=== PATIENT | female | born 1970 | race Caucasian/White ===

== ENCOUNTER 2016-12-26 08:25 | Inpatient (IN) | payer SELFPAY ==
[~2016-12-26] VITALS: Ht 162.6 cm; Wt 52.6 kg
--- NOTE | ~2016-12-26 | PROC NOTE ---
[place], [place] PROCEDURE NOTE NAME: [id number] UNIT #: [id number] ROOM: 415 DOCTOR: VICTORM ANUEL LINCOLN MD BIRTHDATE: [birth year] DOS: 12/28/2016 The patient is a 46-year-old who has presented with chief complaint of epigastric distress, undergoing investigation. PROCEDURE: Today's procedure part of investigation is panendoscopy. PREMEDICATION: Versed and Diprivan. SCOPE: Olympus forward-viewing gastroscope Q10 video. REPORT: After putting the patient in the left lateral position and after application of lubricant to the scope, the scope was introduced thereafter under direct visualization, advanced through the length of esophagus without difficulty. Moderate size hiatal hernia noticed. Gastric pouch was entered. Gastritis was appreciated in the proximal stomach. Deep ulceration approximately 2 cm in diameter in antrum next to the pyloric ring was noticed. As I entered the duodenal bulb, there was a deep punctated ulceration about 2 cm in the duodenal bulb left lateral position, photographed. The patient extubated, tolerated procedure well. IMPRESSION: Antral ulcer, duodenal ulcers. PLAN AND DISCUSSION: Addition of Protonix 40 mg to Carafate 1 gram q.i.d., clinical reassessment. VICTOR MANUEL LINCOLN MD CM:PROCNOTE:PROCEDURE NOTE [id number] VICTOR MANUEL LINCOLN MD
--- NOTE | ~2016-12-26 | CON ---
[place], [place] REPORT OF CONSULTATION NAME: [facility]: [id number] UNIT #: [id number] ROOM: 415 DOCTOR: SALAZAR DESAIXAVIERANDREZ BIRTHDATE: [birth year] DOS: 12/28/2016 HISTORY OF PRESENT ILLNESS: The patient has presented with multiple medical problems, among which epigastric distress, abdominal pain, and borderline anemia. I have been asked for assessment of the patient. I am seeing the patient in this regard. Her lactic acid baseline was 1.2, GFR greater than 60, INR 1.1. CT scan of the abdomen, related to small bowel dilated loops, history of surgery and adhesions at the end of the loop. Her INR was normal. Her hemoglobin A1c was within normal. B12, folate was 1300 and 3.7, low folic acid and vitamin D. CBC dropped to 9.5 and 30 H and H. Urine culture, no growth. Urine was negative. Upper GI, unremarkable upper GI small bowel follow through was reported. PAST MEDICAL HISTORY: Associated COPD, hypertension, peptic ulcer disease, psoriasis. SOCIAL HISTORY: Associated with smoking. PAST SURGICAL HISTORY: Cholecystectomy, and endoscopies. FAMILY HISTORY: Noncontributory except diabetes and . ALLERGIES: SULFA. MEDICATIONS AT HOME: Carafate, lisinopril and gabapentin. REVIEW OF SYSTEMS: HEENT: Denies double vision, blurred vision. RESPIRATORY: Denies acute shortness of breath. CARDIOVASCULAR: Denies acute chest pain. DIGESTIVE SYSTEM: Nausea, epigastric distress, anemia, drop in H and H. PHYSICAL EXAMINATION: VITAL SIGNS: Stable. HEENT: Head normocephalic, nontraumatic. Mouth and buccal mucosa benign. NECK: Supple, no thyromegaly, no cervical lymphadenopathy. CHEST: Symmetric anatomy, equal expansion. No wheeze, no rhonchi. HEART: Normal sinus rhythm, no gallop, no murmur. ABDOMEN: Soft. No hepato-organomegaly. Bowel sounds present. No pulsatile mass. EXTREMITIES: No cyanosis, no pedal edema. NEUROLOGIC: Alert, oriented to time, place, person. IMPRESSION: Anemia, drop in hemoglobin and hematocrit, epigastric distress, ruling out peptic ulcer disease. PLAN AND DISCUSSION: We will organize EGD. OTHER ADJUNCTIVE DIAGNOSES: As outlined in past medical and surgical history. [place], [place] REPORT OF CONSULTATION NAME: BATOOL CIFUENTES V UNIT #: [id number] ROOM: 415 DOCTOR: SALAZAR DESAI,VICTOR MANUEL BIRTHDATE: [birth year] VICTOR MANUEL LINCOLN MD CM:CONSTR:REPORT OF CONSULTATION 1411 12/29/16 0105 interface
[~2016-12-26 08:25] MED LIST: ADVAIR 250/501 EA INH; CARAFATE1 G1 PO; IBUPROFEN600 MG PO; KEFLEX500 MG PO; LISINOPRIL20 MG PO; NEURONTIN600 MG PO; PREVACID SOLUTA30 MG PO; ULTRAM50 MG PO; VICODIN 5/500 505 MG PO
[2016-12-26] MEDS ORDERED: GABAPENTIN600 MG PO (08:30)
[2016-12-26 08:31] VITALS: BP 136/76
[2016-12-26] MEDS ORDERED: QBRELIS1 MG/1 ML PO (08:31)
[2016-12-26] MEDS ORDERED: CARAFATE1 G1 PO (08:31)
[2016-12-26 08:52] LABS: BASO % 0.4 % (0.0-1.0); EOS % 0.2 % (1.0-4.0); HEMATOCRIT 35.2 % (37.0-47.0); HEMOGLOBIN 11.6 g/dl (12.0-16.0); LYMPH # 1.6 10*3/uL (1.3-4.4); LYMPH % 32.1 % (27.0-41.0); MEAN CELL VOLUME 92.4 fl (81.0-99.0); MEAN CORPUSCULAR HGB 30.4 pg (27.0-31.0); MEAN PLATELET VOLUME 9.6 fl (9.6-12.3); MONO # 0.4 10*3/uL (0.1-1.0); MONO % 8.4 % (3.0-9.0); NEUT # 2.9 10*3/uL (2.3-7.9); NEUT % 58.7 % (47.0-73.0); PLATELET COUNT AUTOMATED 209 10*3/uL (130-400); RED BLOOD COUNT 3.81 10*6/uL (4.10-5.10); RED CELL DISTRI WIDTH 16.5 % (0-14.5); WHITE BLOOD COUNT 4.9 10*3/uL (4.8-10.8)
[2016-12-26 09:03] LABS: INTERNATIONAL NORM RATIO 1.1 (2.0-3.5)
[2016-12-26 09:08] LABS: ALBUMIN 3.4 gm/dl (3.1-4.5); ALKALINE PHOSPHATASE 180 U/L (45-117); BILIRUBIN, TOTAL 0.2 mg/dl (0.2-1.0); BUN 8 mg/dl (7-24); CARBON DIOXIDE 24 mmol/L (21-32); CHLORIDE 104 mmol/L (98-107); EST GLOM FILT AFRICAN AMERICAN > 60 ml/min; GLUCOSE 84 mg/dL (65-99); MAGNESIUM 1.9 mg/dL (1.5-2.1); POTASSIUM 2.7 mmol/L (3.5-5.1); SGOT/AST 19 IU/L (3-35); SGPT/ALT 43 U/L (12-78); SODIUM 144 mmol/L (136-145); TOTAL PROTEIN 6.9 gm/dL (6.4-8.2)
[2016-12-26 09:10] LABS: BILIRUBIN, DIRECT < 0.1 mg/dL (0.0-0.2)
[2016-12-26 12:20] VITALS: BP 124/73
[2016-12-26 13:00] VITALS: BP 134/68
[2016-12-26 16:00] VITALS: BP 113/73
[2016-12-26 20:00] VITALS: BP 142/76
[2016-12-27] VITALS: BP 118/71
[2016-12-27 05:43] LABS: HEMOGLOBIN A1c 5.1 % (4.8-5.6)
[2016-12-27 06:02] LABS: ALBUMIN 2.6 gm/dl (3.1-4.5); ALKALINE PHOSPHATASE 144 U/L (45-117); BILIRUBIN, TOTAL 0.2 mg/dl (0.2-1.0); BUN 6 mg/dl (7-24); CARBON DIOXIDE 26 mmol/L (21-32); CHLORIDE 110 mmol/L (98-107); CHOLESTEROL 141 mg/dL (<200); EST GLOM FILT AFRICAN AMERICAN > 60 ml/min; FREE T4 0.42 ng/dl (0.76-1.46); GLUCOSE 67 mg/dL (65-99); HDL CHOLESTEROL 37 mg/dl (40-60); INTERNATIONAL NORM RATIO 1.1 (2.0-3.5); LDL CHOLESTEROL 76 mg/dL (9-159); MAGNESIUM 1.9 mg/dL (1.5-2.1); PHOSPHOROUS 2.5 mg/dL (2.5-4.9); POTASSIUM 3.4 mmol/L (3.5-5.1); PROTHROMBIN TIME 12.2 SECONDS (9.0-12.4); SGOT/AST 17 IU/L (3-35); SGPT/ALT 34 U/L (12-78); SODIUM 144 mmol/L (136-145); TOTAL PROTEIN 5.5 gm/dL (6.4-8.2); TRIGLYCERIDES 138 mg/dl (<150); VLDL CHOLESTEROL 28 mg/dL (6-40)
[2016-12-27 06:24] LABS: VITAMIN D, 25-HYDROXY 7.6 ng/mL (30-100)
[2016-12-27 06:25] LABS: FOLIC ACID 3.37 ng/mL (>5.38)
[2016-12-27 07:12] LABS: BASO % 0.6 % (0.0-1.0); EOS % 0.9 % (1.0-4.0); HEMATOCRIT 30.6 % (37.0-47.0); LYMPH # 1.6 10*3/uL (1.3-4.4); LYMPH % 49.5 % (27.0-41.0); MEAN CORPUSCULAR HGB 30.3 pg (27.0-31.0); MEAN PLATELET VOLUME 9.7 fl (9.6-12.3); MONO # 0.3 10*3/uL (0.1-1.0); MONO % 7.7 % (3.0-9.0); NEUT # 1.3 10*3/uL (2.3-7.9); NEUT % 41.3 % (47.0-73.0); RED BLOOD COUNT 3.14 10*6/uL (4.10-5.10); RED CELL DISTRI WIDTH 16.6 % (0-14.5); WHITE BLOOD COUNT 3.2 10*3/uL (4.8-10.8)
[2016-12-27 07:15] LABS: HEMOGLOBIN 9.5 g/dl (12.0-16.0); MEAN CELL VOLUME 97.5 fl (81.0-99.0)
[2016-12-27 07:16] LABS: PLATELET COUNT AUTOMATED 136 10*3/uL (130-400)
[2016-12-27 08:00] VITALS: BP 138/86
[2016-12-27 12:00] VITALS: BP 130/72
[2016-12-27 13:36] LABS: BILIRUBIN NEGATIVE (NEGATIVE); BLOOD NEGATIVE (NEGATIVE); CLARITY CLOUDY (CLEAR); COLOR YELLOW (YELLOW); GLUCOSE NEGATIVE (NEGATIVE); KETONE NEGATIVE (NEGATIVE); LEUKO ESTERASE NEGATIVE (NEGATIVE); NITRITE NEGATIVE (NEGATIVE); PROTEIN 1+ (NEGATIVE); SPECIFIC GRAVITY 1.025 (1.005-1.030); UROBILINOGEN 0.2 E.U./dl (0.2-1.0)
[2016-12-27 13:50] LABS: BACTERIA TRACE; EPITHELIAL CELLS 16-20; MUCOUS 2+; RBC 0-2 rbc/hpf (0-2); URINE REFLEX COMMENT YES (NO)
[2016-12-27 15:08] LABS: H PYLORI IGG AB 162289 <0.9 U/mL (0.0-0.8)
[2016-12-27 16:00] VITALS: BP 159/80
[2016-12-27 17:06] LABS: H.PYLORI IGM <9.0 units (0.0-8.9); H.PYLORI IgA 163170 <9.0 units (0.0-8.9)
[2016-12-27 20:00] VITALS: BP 166/91
[2016-12-28] VITALS (9 sets, daily range): BP systolic 128–160; BP diastolic 65–90
[2016-12-28 06:06] LABS: BUN 6 mg/dl (7-24); CARBON DIOXIDE 27 mmol/L (21-32); CHLORIDE 108 mmol/L (98-107); EST GLOM FILT AFRICAN AMERICAN > 60 ml/min; GLUCOSE 73 mg/dL (65-99); POTASSIUM 3.6 mmol/L (3.5-5.1); SODIUM 143 mmol/L (136-145)
[2016-12-29] VITALS: BP 128/87
[2016-12-29 05:59] LABS: BASO % 0.5 % (0.0-1.0); EOS % 0.5 % (1.0-4.0); HEMATOCRIT 31.7 % (37.0-47.0); HEMOGLOBIN 9.9 g/dl (12.0-16.0); LYMPH # 1.5 10*3/uL (1.3-4.4); LYMPH % 39.7 % (27.0-41.0); MEAN CELL VOLUME 96.6 fl (81.0-99.0); MEAN CORPUSCULAR HGB 30.2 pg (27.0-31.0); MEAN CORPUSCULAR HGB CONC 31.2 g/dl (33.0-37.0); MEAN PLATELET VOLUME 10.5 fl (9.6-12.3); MONO # 0.3 10*3/uL (0.1-1.0); MONO % 7.3 % (3.0-9.0); NEUT # 1.9 10*3/uL (2.3-7.9); NEUT % 51.7 % (47.0-73.0); PLATELET COUNT AUTOMATED 104 10*3/uL (130-400); RED BLOOD COUNT 3.28 10*6/uL (4.10-5.10); RED CELL DISTRI WIDTH 15.3 % (0-14.5); WHITE BLOOD COUNT 3.7 10*3/uL (4.8-10.8)
[2016-12-29 06:13] LABS: BUN 4 mg/dl (7-24); CARBON DIOXIDE 28 mmol/L (21-32); CHLORIDE 107 mmol/L (98-107); EST GLOM FILT AFRICAN AMERICAN > 60 ml/min; GLUCOSE 76 mg/dL (65-99); POTASSIUM 3.4 mmol/L (3.5-5.1); SODIUM 142 mmol/L (136-145)
[2016-12-29 08:00] VITALS: BP 154/84
[2016-12-29 12:00] VITALS: BP 156/86
[2016-12-29 16:00] VITALS: BP 156/88
[2016-12-29 20:00] VITALS: BP 162/90
[2016-12-30] VITALS: BP 154/92
[2016-12-30 05:53] LABS: BASO % 0.3 % (0.0-1.0); EOS % 0.8 % (1.0-4.0); HEMATOCRIT 34.2 % (37.0-47.0); HEMOGLOBIN 10.5 g/dl (12.0-16.0); LYMPH # 1.8 10*3/uL (1.3-4.4); LYMPH % 46.5 % (27.0-41.0); MEAN CELL VOLUME 96.9 fl (81.0-99.0); MEAN CORPUSCULAR HGB 29.7 pg (27.0-31.0); MEAN CORPUSCULAR HGB CONC 30.7 g/dl (33.0-37.0); MEAN PLATELET VOLUME 10.9 fl (9.6-12.3); MONO # 0.3 10*3/uL (0.1-1.0); MONO % 7.3 % (3.0-9.0); NEUT # 1.7 10*3/uL (2.3-7.9); NEUT % 44.8 % (47.0-73.0); PLATELET COUNT AUTOMATED 111 10*3/uL (130-400); RED BLOOD COUNT 3.53 10*6/uL (4.10-5.10); RED CELL DISTRI WIDTH 15.3 % (0-14.5); WHITE BLOOD COUNT 3.9 10*3/uL (4.8-10.8)
[2016-12-30 05:59] LABS: BUN 6 mg/dl (7-24); CARBON DIOXIDE 27 mmol/L (21-32); CHLORIDE 110 mmol/L (98-107); EST GLOM FILT AFRICAN AMERICAN > 60 ml/min; GLUCOSE 113 mg/dL (65-99); POTASSIUM 3.3 mmol/L (3.5-5.1); SODIUM 147 mmol/L (136-145)
[2016-12-30 08:00] VITALS: BP 150/80
[2016-12-30 12:00] VITALS: BP 156/86
[2016-12-30 16:00] VITALS: BP 154/90
[2016-12-30 20:00] VITALS: BP 134/64; BP 136/82
[2016-12-31] VITALS: BP 170/98
[2016-12-31 06:28] LABS: BASO % 0.3 % (0.0-1.0); HEMATOCRIT 38.1 % (37.0-47.0); HEMOGLOBIN 11.8 g/dl (12.0-16.0); LYMPH % 50.1 % (27.0-41.0); MEAN CELL VOLUME 97.7 fl (81.0-99.0); MEAN CORPUSCULAR HGB 30.3 pg (27.0-31.0); MONO # 0.3 10*3/uL (0.1-1.0); MONO % 6.7 % (3.0-9.0); NEUT # 1.6 10*3/uL (2.3-7.9); NEUT % 41.6 % (47.0-73.0); PLATELET COUNT AUTOMATED 129 10*3/uL (130-400); RED CELL DISTRI WIDTH 15.1 % (0-14.5); WHITE BLOOD COUNT 3.9 10*3/uL (4.8-10.8)
[2016-12-31 06:37] LABS: BUN 7 mg/dl (7-24); CARBON DIOXIDE 26 mmol/L (21-32); CHLORIDE 111 mmol/L (98-107); EST GLOM FILT AFRICAN AMERICAN > 60 ml/min; GLUCOSE 71 mg/dL (65-99); POTASSIUM 4.2 mmol/L (3.5-5.1); SODIUM 145 mmol/L (136-145)
[2016-12-31 08:00] VITALS: BP 158/88
[2016-12-31 12:00] VITALS: BP 154/88
[2016-12-31 16:00] VITALS: BP 131/80
[2016-12-31 20:00] VITALS: BP 131/80
[2017-01-01] VITALS: BP 153/87
[2017-01-01 08:00] VITALS: BP 144/80
[2017-01-01] MEDS ORDERED: PANTOPRAZOLE SO40 MG PO (14:28)
[2017-01-01] MEDS ORDERED: D-1000 185 MG-11 TAB PO (14:28)
[2017-01-01] MEDS ORDERED: Carafate1 GM PO (14:28)
[2017-01-01] MEDS ORDERED: NATURE'S BLEND F1 MG PO (14:28)
[2017-01-01] MEDS ORDERED: LISINOPRIL5 MG PO (14:45)
== END 2017-01-01 16:00 | disposition home or self-care (01) | DRG 377 ==
LOC: ED 08:25 → EDHOLD 11:57 → 4E 11:57
PROVIDERS: Emergency Medicine; Internal Medicine
PROC: 0DB68ZX Excision of Stomach, Via Natural or Artificial Opening Endoscopic, Diagnostic (ICD-10-PCS; principal; 2016-12-28)
DX: K92.2 Gastrointestinal hemorrhage, unspecified (principal); E43 Unspecified severe protein-calorie malnutrition; Z68.1 Body mass index [BMI] 19.9 or less, adult; K25.3 Acute gastric ulcer without hemorrhage or perforation; E53.8 Deficiency of other specified B group vitamins; E55.9 Vitamin D deficiency, unspecified; K46.9 Unspecified abdominal hernia without obstruction or gangrene; K44.9 Diaphragmatic hernia without obstruction or gangrene; D64.9 Anemia, unspecified; I10 Essential (primary) hypertension; E87.6 Hypokalemia; J44.9 Chronic obstructive pulmonary disease, unspecified; L40.9 Psoriasis, unspecified; F17.210 Nicotine dependence, cigarettes, uncomplicated; G62.9 Polyneuropathy, unspecified; Z88.2 Allergy status to sulfonamides; Z79.899 Other long term (current) drug therapy; Z71.6 Tobacco abuse counseling; Z83.3 Family history of diabetes mellitus; Z82.3 Family history of stroke; Z90.49 Acquired absence of other specified parts of digestive tract; Z82.49 Family history of ischemic heart disease and other diseases of the circulatory system

== ENCOUNTER 2020-01-16 10:56 | Emergency (ER) | payer OTHER, MEDICAID ==
[~2020-01-16] VITALS: Ht 165.1 cm; Wt 47.6 kg
[~2020-01-16 10:56] MED LIST changes: +Carafate1 GM PO; +D-1000 185 MG-11 TAB PO; +GABAPENTIN600 MG PO; +LISINOPRIL5 MG PO; +NATURE'S BLEND F1 MG PO; +PANTOPRAZOLE SO40 MG PO; +QBRELIS1 MG/1 ML PO
[2020-01-16] MEDS ORDERED: IBU800 MG PO (12:30)
== END 2020-01-16 12:58 | disposition home or self-care (01) ==
LOC: ED 10:56
DX: M79.672 Pain in left foot (principal); I10 Essential (primary) hypertension; J44.9 Chronic obstructive pulmonary disease, unspecified; Z88.2 Allergy status to sulfonamides; Z79.899 Other long term (current) drug therapy; Z90.49 Acquired absence of other specified parts of digestive tract

== ENCOUNTER 2020-05-29 10:57 | Inpatient (IN) | payer OTHER, MEDICAID ==
[~2020-05-29] VITALS: Ht 165 cm; Wt 47.3 kg
[~2020-05-29 10:57] MED LIST changes: +IBU800 MG PO
[2020-05-29 11:14] VITALS: BP 132/92
[2020-05-29] MEDS ORDERED: ADVAIR 250/501 EA INH (11:18)
[2020-05-29] MEDS ORDERED: ALBUTEROL2.5 MG/0.5 INH (11:19)
[2020-05-29 12:01] LABS: BASO % 0.6 % (0.0-1.0); HEMATOCRIT 44.5 % (37.0-47.0); LYMPH # 1.6 10*3/uL (1.3-4.4); LYMPH % 23.4 % (27.0-41.0); MEAN CELL VOLUME 97.2 fl (81.0-99.0); MEAN CORPUSCULAR HGB 31.4 pg (27.0-31.0); MEAN CORPUSCULAR HGB CONC 32.4 g/dl (33.0-37.0); MEAN PLATELET VOLUME 9.9 fl (9.6-12.3); MONO # 0.5 10*3/uL (0.1-1.0); MONO % 7.5 % (3.0-9.0); NEUT # 4.7 10*3/uL (2.3-7.9); NEUT % 68.2 % (47.0-73.0); PLATELET COUNT AUTOMATED 282 10*3/uL (130-400); RED BLOOD COUNT 4.58 10*6/uL (4.10-5.10); RED CELL DISTRI WIDTH 14.6 % (0-14.5); WHITE BLOOD COUNT 6.9 10*3/uL (4.8-10.8)
[2020-05-29 12:10] VITALS: BP 140/78
[2020-05-29 12:13] LABS: ACT PARTIAL THROMBO TIME 22.2 SECONDS (20.0-32.1); INTERNATIONAL NORM RATIO 1.1 (2.0-3.5)
[2020-05-29 12:27] LABS: ALBUMIN 3.8 gm/dl (3.1-4.5); ALKALINE PHOSPHATASE 144 U/L (45-117); BUN 13 mg/dl (7-24); CHLORIDE 103 mmol/L (98-107); LIPASE 158 U/L (73-393); POTASSIUM 2.9 mmol/L (3.5-5.1); SGOT/AST 16 IU/L (3-35); SGPT/ALT 18 U/L (12-78); SODIUM 139 mmol/L (136-145); TOTAL PROTEIN 7.5 gm/dL (6.4-8.2)
[2020-05-29 12:30] LABS: TROPONIN I < 0.015 ng/ml (<0.045)
[2020-05-29 13:52] LABS: BILIRUBIN Negative (Negative); BLOOD Negative (Negative); CLARITY Cloudy (Clear); COLOR Yellow (Yellow); GLUCOSE Negative (Negative); KETONE 1+ (Negative); LEUKO ESTERASE Trace (Negative); NITRITE Negative (Negative); SPECIFIC GRAVITY >= 1.030 (1.001-1.030); UROBILINOGEN 0.2 E.U./dl (0.0-1.0)
[2020-05-29 14:04] LABS: BACTERIA 4+; MUCOUS 1+
[2020-05-29 15:11] VITALS: BP 154/83
[2020-05-29 18:04] VITALS: BP 152/90
[2020-05-29 20:00] VITALS: BP 148/83
[2020-05-30] VITALS: BP 127/79
[2020-05-30 03:17] VITALS: BP 127/79
[2020-05-30 06:36] LABS: BASO % 0.6 % (0.0-1.0); EOS # 0.1 10*3/uL (0.0-0.4); EOS % 0.8 % (1.0-4.0); HEMATOCRIT 37.2 % (37.0-47.0); LYMPH # 1.8 10*3/uL (1.3-4.4); LYMPH % 27.4 % (27.0-41.0); MEAN CELL VOLUME 99.7 fl (81.0-99.0); MEAN CORPUSCULAR HGB 31.9 pg (27.0-31.0); MEAN PLATELET VOLUME 10.6 fl (9.6-12.3); MONO # 0.4 10*3/uL (0.1-1.0); MONO % 6.2 % (3.0-9.0); NEUT # 4.3 10*3/uL (2.3-7.9); NEUT % 64.8 % (47.0-73.0); PLATELET COUNT AUTOMATED 199 10*3/uL (130-400); RED BLOOD COUNT 3.73 10*6/uL (4.10-5.10); RED CELL DISTRI WIDTH 14.4 % (0-14.5); WHITE BLOOD COUNT 6.6 10*3/uL (4.8-10.8)
[2020-05-30 06:47] LABS: INTERNATIONAL NORM RATIO 1.2 (2.0-3.5)
[2020-05-30 06:55] LABS: CHLORIDE 107 mmol/L (98-107); HDL CHOLESTEROL 41 mg/dl (40-60); POTASSIUM 3.1 mmol/L (3.5-5.1); SODIUM 140 mmol/L (136-145)
[2020-05-30 07:05] LABS: ALBUMIN 2.9 gm/dl (3.1-4.5); ALKALINE PHOSPHATASE 114 U/L (45-117); BUN 8 mg/dl (7-24); CHOLESTEROL 199 mg/dL (<200); CREATININE 0.31 mg/dL (0.55-1.02); FREE T4 0.61 ng/dl (0.76-1.46); LDL CHOLESTEROL 122 mg/dL (9-159); SGOT/AST 16 IU/L (3-35); SGPT/ALT 15 U/L (12-78); TOTAL PROTEIN 5.9 gm/dL (6.4-8.2); TRIGLYCERIDES 180 mg/dl (<150); VLDL CHOLESTEROL 36 mg/dL (6-40)
[2020-05-30 07:32] VITALS: BP 130/81
[2020-05-30 09:51] LABS: VITAMIN D, 25-HYDROXY 20.7 ng/mL (30-100)
[2020-05-30 11:16] VITALS: BP 165/89
[2020-05-30 17:00] VITALS: BP 151/95
[2020-05-30 19:29] VITALS: BP 151/98
[2020-05-31] VITALS (7 sets, daily range): BP systolic 124–169; BP diastolic 74–96
[2020-05-31 07:29] LABS: BUN 3 mg/dl (7-24); CHLORIDE 106 mmol/L (98-107); CREATININE 0.31 mg/dL (0.55-1.02); POTASSIUM 3.4 mmol/L (3.5-5.1); SODIUM 138 mmol/L (136-145)
[2020-06-01] VITALS (9 sets, daily range): BP systolic 106–187; BP diastolic 54–101
[2020-06-01 06:56] LABS: BASO % 0.4 % (0.0-1.0); EOS # 0.1 10*3/uL (0.0-0.4); EOS % 1.3 % (1.0-4.0); HEMATOCRIT 41.9 % (37.0-47.0); LYMPH # 1.5 10*3/uL (1.3-4.4); LYMPH % 28.8 % (27.0-41.0); MEAN CELL VOLUME 99.5 fl (81.0-99.0); MEAN CORPUSCULAR HGB 31.4 pg (27.0-31.0); MEAN CORPUSCULAR HGB CONC 31.5 g/dl (33.0-37.0); MONO # 0.3 10*3/uL (0.1-1.0); MONO % 5.8 % (3.0-9.0); NEUT # 3.3 10*3/uL (2.3-7.9); NEUT % 63.5 % (47.0-73.0); PLATELET COUNT AUTOMATED 213 10*3/uL (130-400); RED BLOOD COUNT 4.21 10*6/uL (4.10-5.10); RED CELL DISTRI WIDTH 13.9 % (0-14.5); WHITE BLOOD COUNT 5.2 10*3/uL (4.8-10.8)
[2020-06-01 07:29] LABS: CHLORIDE 107 mmol/L (98-107); POTASSIUM 3.5 mmol/L (3.5-5.1); SODIUM 138 mmol/L (136-145)
[2020-06-01 07:40] LABS: ALBUMIN 3.3 gm/dl (3.1-4.5); ALKALINE PHOSPHATASE 130 U/L (45-117); BUN 3 mg/dl (7-24); CREATININE 0.48 mg/dL (0.55-1.02); LDH 180 U/L (84-246); SGOT/AST 30 IU/L (3-35); SGPT/ALT 30 U/L (12-78); TOTAL PROTEIN 6.5 gm/dL (6.4-8.2)
[2020-06-02] VITALS: BP 162/101
[2020-06-02 08:00] VITALS: BP 129/84
[2020-06-02 12:00] VITALS: BP 115/76
[2020-06-02 16:00] VITALS: BP 115/68
[2020-06-02 20:00] VITALS: BP 119/70
[2020-06-03] VITALS: BP 131/83
[2020-06-03 06:52] LABS: BASO # 0.1 10*3/uL (0.0-0.1); BASO % 0.7 % (0.0-1.0); EOS # 0.2 10*3/uL (0.0-0.4); EOS % 2.5 % (1.0-4.0); HEMATOCRIT 38.6 % (37.0-47.0); LYMPH # 1.9 10*3/uL (1.3-4.4); MEAN CELL VOLUME 97.2 fl (81.0-99.0); MEAN CORPUSCULAR HGB CONC 32.9 g/dl (33.0-37.0); MEAN PLATELET VOLUME 11.4 fl (9.6-12.3); MONO # 0.5 10*3/uL (0.1-1.0); MONO % 7.6 % (3.0-9.0); NEUT # 4.2 10*3/uL (2.3-7.9); NEUT % 60.9 % (47.0-73.0); PLATELET COUNT AUTOMATED 171 10*3/uL (130-400); RED BLOOD COUNT 3.97 10*6/uL (4.10-5.10); RED CELL DISTRI WIDTH 14.1 % (0-14.5); WHITE BLOOD COUNT 6.9 10*3/uL (4.8-10.8)
[2020-06-03 07:16] LABS: ALBUMIN 2.6 gm/dl (3.1-4.5); ALKALINE PHOSPHATASE 109 U/L (45-117); BUN 8 mg/dl (7-24); CHLORIDE 109 mmol/L (98-107); SGPT/ALT 30 U/L (12-78); SODIUM 136 mmol/L (136-145); TOTAL PROTEIN 6.3 gm/dL (6.4-8.2)
[2020-06-03 07:18] LABS: SGOT/AST 37 IU/L (3-35)
[2020-06-03 07:19] LABS: POTASSIUM 3.7 mmol/L (3.5-5.1)
[2020-06-03 08:00] VITALS: BP 156/85
[2020-06-03 12:00] VITALS: BP 149/80
[2020-06-03 16:00] VITALS: BP 117/83
[2020-06-03 20:00] VITALS: BP 127/81
[2020-06-04] VITALS: BP 131/78
[2020-06-04 06:34] LABS: ALBUMIN 2.6 gm/dl (3.1-4.5); ALKALINE PHOSPHATASE 90 U/L (45-117); BUN 11 mg/dl (7-24); CHLORIDE 107 mmol/L (98-107); CREATININE 0.31 mg/dL (0.55-1.02); LIPASE 450 U/L (73-393); POTASSIUM 3.3 mmol/L (3.5-5.1); SGOT/AST 13 IU/L (3-35); SGPT/ALT 21 U/L (12-78); SODIUM 142 mmol/L (136-145); TOTAL PROTEIN 5.5 gm/dL (6.4-8.2)
[2020-06-04 08:00] VITALS: BP 130/72
[2020-06-04 08:15] VITALS: BP 152/90
[2020-06-04 12:00] VITALS: BP 141/74
[2020-06-04 16:00] VITALS: BP 140/82
[2020-06-04 20:00] VITALS: BP 139/82
[2020-06-05] VITALS: BP 139/92
[2020-06-05 07:49] LABS: ALBUMIN 2.7 gm/dl (3.1-4.5); ALKALINE PHOSPHATASE 95 U/L (45-117); BUN 7 mg/dl (7-24); CHLORIDE 107 mmol/L (98-107); CREATININE 0.36 mg/dL (0.55-1.02); POTASSIUM 3.5 mmol/L (3.5-5.1); SGOT/AST 15 IU/L (3-35); SGPT/ALT 21 U/L (12-78); SODIUM 139 mmol/L (136-145); TOTAL PROTEIN 5.5 gm/dL (6.4-8.2)
[2020-06-05 08:00] VITALS: BP 149/84
[2020-06-05 12:00] VITALS: BP 132/71
[2020-06-05 16:00] VITALS: BP 134/85
[2020-06-05 20:00] VITALS: BP 157/90
[2020-06-06] VITALS: BP 144/83
[2020-06-06 06:31] LABS: BASO % 0.2 % (0.0-1.0); EOS # 0.2 10*3/uL (0.0-0.4); EOS % 3.3 % (1.0-4.0); HEMATOCRIT 35.5 % (37.0-47.0); MEAN CELL VOLUME 100.6 fl (81.0-99.0); MEAN CORPUSCULAR HGB 31.4 pg (27.0-31.0); MEAN CORPUSCULAR HGB CONC 31.3 g/dl (33.0-37.0); MEAN PLATELET VOLUME 10.7 fl (9.6-12.3); MONO # 0.4 10*3/uL (0.1-1.0); MONO % 7.8 % (3.0-9.0); NEUT # 3.3 10*3/uL (2.3-7.9); NEUT % 68.3 % (47.0-73.0); PLATELET COUNT AUTOMATED 140 10*3/uL (130-400); RED BLOOD COUNT 3.53 10*6/uL (4.10-5.10); RED CELL DISTRI WIDTH 13.9 % (0-14.5); WHITE BLOOD COUNT 4.9 10*3/uL (4.8-10.8)
[2020-06-06 08:00] VITALS: BP 141/82
[2020-06-06 12:00] VITALS: BP 149/77
[2020-06-06] MEDS ORDERED: NORCO 5-325 TA1 EACH PO (13:30)
== END 2020-06-06 14:23 | disposition home or self-care (01) | DRG 392 ==
LOC: ED 10:57 → 4E 15:19 → EDHOLD 15:19 → 5E 15:19 → EDHOLD 15:34 → 4E 16:14 → 5E 06-01 14:29
PROVIDERS: Family Medicine; Hospitalist; Internal Medicine; Physician Assistant; Student in an Organized Health Care Education/Training Program; ADMIT Student in an Organized Health Care Education/Training Program; ATTEND Student in an Organized Health Care Education/Training Program
PROC: 0DBH8ZZ Excision of Cecum, Via Natural or Artificial Opening Endoscopic (ICD-10-PCS; principal; 2020-06-01)
PROC: 0DBN8ZX Excision of Sigmoid Colon, Via Natural or Artificial Opening Endoscopic, Diagnostic (ICD-10-PCS; 2020-06-01)
PROC: 0DB68ZX Excision of Stomach, Via Natural or Artificial Opening Endoscopic, Diagnostic (ICD-10-PCS; 2020-06-01)
DX: K52.9 Noninfective gastroenteritis and colitis, unspecified (principal); E44.0 Moderate protein-calorie malnutrition; Z68.1 Body mass index [BMI] 19.9 or less, adult; K25.9 Gastric ulcer, unspecified as acute or chronic, without hemorrhage or perforation; E87.6 Hypokalemia; R16.0 Hepatomegaly, not elsewhere classified; I10 Essential (primary) hypertension; J44.9 Chronic obstructive pulmonary disease, unspecified; G62.9 Polyneuropathy, unspecified; L40.9 Psoriasis, unspecified; K83.8 Other specified diseases of biliary tract; K20.90 Esophagitis, unspecified without bleeding; K86.89 Other specified diseases of pancreas; R00.1 Bradycardia, unspecified; E87.8 Other disorders of electrolyte and fluid balance, not elsewhere classified; E16.2 Hypoglycemia, unspecified; K80.50 Calculus of bile duct without cholangitis or cholecystitis without obstruction; R74.01 Elevation of levels of liver transaminase levels; D53.9 Nutritional anemia, unspecified; Z20.828 Contact with and (suspected) exposure to other viral communicable diseases; E55.9 Vitamin D deficiency, unspecified; R74.8 Abnormal levels of other serum enzymes; K76.0 Fatty (change of) liver, not elsewhere classified; D12.0 Benign neoplasm of cecum; F17.210 Nicotine dependence, cigarettes, uncomplicated; Z88.2 Allergy status to sulfonamides; Z90.49 Acquired absence of other specified parts of digestive tract; Z98.891 History of uterine scar from previous surgery; Z83.3 Family history of diabetes mellitus; Z82.3 Family history of stroke; Z82.49 Family history of ischemic heart disease and other diseases of the circulatory system; Z79.899 Other long term (current) drug therapy

== ENCOUNTER 2020-10-13 11:54 | Inpatient (IN) | payer OTHER ==
[~2020-10-13] VITALS: Ht 165.1 cm; Wt 57.2 kg
[2020-10-13] VITALS (7 sets, daily range): BP systolic 89–117; BP diastolic 60–89
[~2020-10-13 11:54] MED LIST changes: +ALBUTEROL2.5 MG/0.5 INH; +NORCO 5-325 TA1 EACH PO
[2020-10-13 12:53] LABS: HEMATOCRIT 43.1 % (37.0-47.0); MEAN CELL VOLUME 95.6 fl (81.0-99.0); MEAN CORPUSCULAR HGB CONC 32.5 g/dl (33.0-37.0); MEAN PLATELET VOLUME 10.4 fl (9.6-12.3); PLATELET COUNT AUTOMATED 187 10*3/uL (130-400); RED BLOOD COUNT 4.51 10*6/uL (4.10-5.10); RED CELL DISTRI WIDTH 15.4 % (0-14.5); WHITE BLOOD COUNT 12.5 10*3/uL (4.8-10.8)
[2020-10-13 13:07] LABS: ALBUMIN 3.4 gm/dl (3.1-4.5); CREATININE 2.55 mg/dL (0.55-1.02); POTASSIUM 3.1 mmol/L (3.5-5.1); TOTAL PROTEIN 6.3 gm/dL (6.4-8.2)
[2020-10-13 13:13] LABS: PLATELET SUFFICIENCY NORMAL (NORMAL); TOTAL CELLS COUNTED 100 #CELLS; VACUOLATION OF NEUTROPHILS SLIGHT
[2020-10-13 13:33] LABS: CPK 40 U/L (26-192)
[2020-10-13 13:37] LABS: TROPONIN I < 0.015 ng/ml (<0.045)
[2020-10-13 18:35] LABS: BILIRUBIN Negative (Negative); BLOOD Negative (Negative); CLARITY Clear (Clear); COLOR Yellow (Yellow); GLUCOSE Negative (Negative); KETONE Negative (Negative); LEUKO ESTERASE Negative (Negative); NITRITE Negative (Negative); PH 5.5 (4.5-8.0); SPECIFIC GRAVITY 1.015 (1.001-1.030); UROBILINOGEN 0.2 E.U./dl (0.0-1.0)
[2020-10-13 18:53] LABS: BACTERIA 1+; EPITHELIAL CELLS 16-20; WBC 21-30 wbc/hpf (0-5)
[2020-10-14] VITALS: BP 91/64
[2020-10-14 04:00] VITALS: BP 92/55
[2020-10-14 06:07] LABS: ALBUMIN 2.7 gm/dl (3.1-4.5); CREATININE 1.36 mg/dL (0.55-1.02); FREE T4 1.15 ng/dl (0.76-1.46); POTASSIUM 3.2 mmol/L (3.5-5.1); TOTAL PROTEIN 5.4 gm/dL (6.4-8.2)
[2020-10-14 06:11] LABS: THYROID STIM HORMONE (HS) 0.091 uIU/ml (0.358-4.75)
[2020-10-14 06:23] LABS: HEMATOCRIT 36.7 % (37.0-47.0); MEAN CELL VOLUME 98.1 fl (81.0-99.0); MEAN CORPUSCULAR HGB 30.7 pg (27.0-31.0); MEAN CORPUSCULAR HGB CONC 31.3 g/dl (33.0-37.0); MEAN PLATELET VOLUME 10.8 fl (9.6-12.3); PLATELET COUNT AUTOMATED 145 10*3/uL (130-400); RED BLOOD COUNT 3.74 10*6/uL (4.10-5.10); RED CELL DISTRI WIDTH 15.8 % (0-14.5); WHITE BLOOD COUNT 6.5 10*3/uL (4.8-10.8)
[2020-10-14 07:30] LABS: BURR CELLS MODERATE; OVALOCYTES FEW; PLATELET SUFFICIENCY NORMAL (NORMAL); TOTAL CELLS COUNTED 100 #CELLS; TOXIC GRANULATION SLIGHT; VACUOLATION OF NEUTROPHILS SLIGHT
[2020-10-14 07:37] LABS: ACT PARTIAL THROMBO TIME 38.7 SECONDS (20.0-32.1); INTERNATIONAL NORM RATIO 1.5 (2.0-3.5)
[2020-10-14 08:00] VITALS: BP 99/64
[2020-10-14 12:00] VITALS: BP 90/62
[2020-10-14 16:00] VITALS: BP 97/66
[2020-10-14 20:00] VITALS: BP 122/82
[2020-10-15] VITALS (8 sets, daily range): BP systolic 119–170; BP diastolic 75–106
[2020-10-15 04:48] LABS: BASO % 0.2 % (0.0-1.0); EOS % 0.6 % (1.0-4.0); HEMATOCRIT 33.2 % (37.0-47.0); LYMPH # 0.4 10*3/uL (1.3-4.4); LYMPH % 6.6 % (27.0-41.0); MEAN CELL VOLUME 98.2 fl (81.0-99.0); MEAN CORPUSCULAR HGB 30.8 pg (27.0-31.0); MEAN CORPUSCULAR HGB CONC 31.3 g/dl (33.0-37.0); MEAN PLATELET VOLUME 10.9 fl (9.6-12.3); MONO # 0.1 10*3/uL (0.1-1.0); MONO % 1.4 % (3.0-9.0); NEUT % 90.4 % (47.0-73.0); PLATELET COUNT AUTOMATED 142 10*3/uL (130-400); RED BLOOD COUNT 3.38 10*6/uL (4.10-5.10); RED CELL DISTRI WIDTH 16.1 % (0-14.5); WHITE BLOOD COUNT 6.6 10*3/uL (4.8-10.8)
[2020-10-15 05:08] LABS: ALBUMIN 2.3 gm/dl (3.1-4.5); ALKALINE PHOSPHATASE 87 U/L (45-117); BUN 28 mg/dl (7-24); CHLORIDE 120 mmol/L (98-107); POTASSIUM 3.2 mmol/L (3.5-5.1); SGOT/AST 16 IU/L (3-35); SGPT/ALT 18 U/L (12-78); SODIUM 147 mmol/L (136-145); TOTAL PROTEIN 5.4 gm/dL (6.4-8.2)
[2020-10-15 05:16] LABS: BURR CELLS MODERATE; OVALOCYTES FEW; TOTAL CELLS COUNTED 100 #CELLS
[2020-10-15 05:18] LABS: TOXIC GRANULATION SLIGHT; VACUOLATION OF NEUTROPHILS SLIGHT
[2020-10-15 05:21] LABS: PLATELET SUFFICIENCY NORMAL (NORMAL)
[2020-10-16] VITALS (10 sets, daily range): BP systolic 121–189; BP diastolic 87–133
[2020-10-16 00:28] LABS: ABG BASE EXCESS -4.1 mmol/L (-2.0-2.0); ARTERIAL BLOOD GAS PH 7.331 (7.35-7.45); ARTERIAL BLOOD GAS PO2 61.9 (80-90)
[2020-10-16 05:04] LABS: ALBUMIN 2.3 gm/dl (3.1-4.5); ALKALINE PHOSPHATASE 119 U/L (45-117); CHLORIDE 111 mmol/L (98-107); CREATININE 0.43 mg/dL (0.55-1.02); POTASSIUM 2.9 mmol/L (3.5-5.1); SGOT/AST 44 IU/L (3-35); SGPT/ALT 20 U/L (12-78); SODIUM 141 mmol/L (136-145); TOTAL PROTEIN 6.3 gm/dL (6.4-8.2)
[2020-10-16 05:07] LABS: BUN 12 mg/dl (7-24)
[2020-10-16 06:20] LABS: MEAN CELL VOLUME 96.9 fl (81.0-99.0); MEAN CORPUSCULAR HGB 30.7 pg (27.0-31.0); MEAN CORPUSCULAR HGB CONC 31.7 g/dl (33.0-37.0); PLATELET COUNT AUTOMATED 153 10*3/uL (130-400); RED BLOOD COUNT 4.23 10*6/uL (4.10-5.10); RED CELL DISTRI WIDTH 15.9 % (0-14.5); WHITE BLOOD COUNT 10.4 10*3/uL (4.8-10.8)
[2020-10-16 07:07] LABS: PLATELET SUFFICIENCY NORMAL (NORMAL); TOTAL CELLS COUNTED 100 #CELLS
[2020-10-16 07:47] LABS: ABG BASE EXCESS -4.3 mmol/L (-2.0-2.0); ARTERIAL BLOOD GAS PH 7.209 (7.35-7.45); ARTERIAL BLOOD GAS PO2 56.6 (80-90)
[2020-10-16 09:58] LABS: ABG BASE EXCESS -0.2 mmol/L (-2.0-2.0); ARTERIAL BLOOD GAS PH 7.362 (7.35-7.45); ARTERIAL BLOOD GAS PO2 66.4 (80-90)
[2020-10-17] VITALS: BP 135/92
[2020-10-17 04:00] VITALS: BP 159/90
[2020-10-17 06:12] LABS: HEMATOCRIT 35.7 % (37.0-47.0); MEAN CORPUSCULAR HGB 30.6 pg (27.0-31.0); MEAN CORPUSCULAR HGB CONC 33.1 g/dl (33.0-37.0); MEAN PLATELET VOLUME 10.8 fl (9.6-12.3); PLATELET COUNT AUTOMATED 140 10*3/uL (130-400); RED BLOOD COUNT 3.86 10*6/uL (4.10-5.10); RED CELL DISTRI WIDTH 15.4 % (0-14.5); WHITE BLOOD COUNT 11.4 10*3/uL (4.8-10.8)
[2020-10-17 06:15] LABS: MEAN CELL VOLUME 92.5 fl (81.0-99.0)
[2020-10-17 06:17] LABS: BUN 19 mg/dl (7-24); CHLORIDE 106 mmol/L (98-107); CREATININE 0.41 mg/dL (0.55-1.02); POTASSIUM 2.9 mmol/L (3.5-5.1); SGOT/AST 35 IU/L (3-35); SGPT/ALT 16 U/L (12-78); SODIUM 139 mmol/L (136-145)
[2020-10-17 06:19] LABS: ALKALINE PHOSPHATASE 126 U/L (45-117)
[2020-10-17 07:47] LABS: ABG BASE EXCESS 4.1 mmol/L (-2.0-2.0); ARTERIAL BLOOD GAS PH 7.415 (7.35-7.45); ARTERIAL BLOOD GAS PO2 103.4 (80-90)
[2020-10-17 08:00] VITALS: BP 156/108
[2020-10-17 08:10] LABS: BURR CELLS FEW; PLATELET SUFFICIENCY NORMAL (NORMAL); TOTAL CELLS COUNTED 100 #CELLS; TOXIC GRANULATION SLIGHT
[2020-10-17 11:51] LABS: ABG BASE EXCESS 2.1 mmol/L (-2.0-2.0); ARTERIAL BLOOD GAS PH 7.411 (7.35-7.45); ARTERIAL BLOOD GAS PO2 72.7 (80-90)
[2020-10-17 12:00] VITALS: BP 147/104
[2020-10-17 16:00] VITALS: BP 153/108
[2020-10-17 17:40] LABS: BUN 20 mg/dl (7-24); CHLORIDE 108 mmol/L (98-107); CREATININE 0.45 mg/dL (0.55-1.02); POTASSIUM 3.4 mmol/L (3.5-5.1); SODIUM 141 mmol/L (136-145)
[2020-10-17 20:02] VITALS: BP 152/125
[2020-10-18] VITALS: BP 137/91
[2020-10-18 04:00] VITALS: BP 143/89
[2020-10-18 06:06] LABS: ALBUMIN 1.8 gm/dl (3.1-4.5); ALKALINE PHOSPHATASE 128 U/L (45-117); BUN 15 mg/dl (7-24); CHLORIDE 107 mmol/L (98-107); CREATININE 0.37 mg/dL (0.55-1.02); POTASSIUM 2.9 mmol/L (3.5-5.1); SGOT/AST 33 IU/L (3-35); SGPT/ALT 15 U/L (12-78); SODIUM 141 mmol/L (136-145); TOTAL PROTEIN 5.7 gm/dL (6.4-8.2)
[2020-10-18 08:00] VITALS: BP 137/100
[2020-10-18 08:17] LABS: ABG BASE EXCESS 4.8 mmol/L (-2.0-2.0); ARTERIAL BLOOD GAS PH 7.431 (7.35-7.45); ARTERIAL BLOOD GAS PO2 95.8 (80-90)
[2020-10-18 12:00] VITALS: BP 129/95
[2020-10-18 16:00] VITALS: BP 134/97
[2020-10-18 20:00] VITALS: BP 160/100
[2020-10-19] VITALS: BP 159/100
[2020-10-19 04:00] VITALS: BP 159/90
[2020-10-19 04:55] LABS: ALKALINE PHOSPHATASE 158 U/L (45-117); BUN 18 mg/dl (7-24); CHLORIDE 106 mmol/L (98-107); CREATININE 0.32 mg/dL (0.55-1.02); POTASSIUM 3.3 mmol/L (3.5-5.1); SGOT/AST 30 IU/L (3-35); SGPT/ALT 21 U/L (12-78); SODIUM 142 mmol/L (136-145)
[2020-10-19 06:20] LABS: HEMATOCRIT 35.2 % (37.0-47.0); MEAN CELL VOLUME 94.4 fl (81.0-99.0); MEAN CORPUSCULAR HGB 30.3 pg (27.0-31.0); MEAN CORPUSCULAR HGB CONC 32.1 g/dl (33.0-37.0); MEAN PLATELET VOLUME 11.5 fl (9.6-12.3); PLATELET COUNT AUTOMATED 119 10*3/uL (130-400); RED BLOOD COUNT 3.73 10*6/uL (4.10-5.10); RED CELL DISTRI WIDTH 15.4 % (0-14.5); WHITE BLOOD COUNT 8.3 10*3/uL (4.8-10.8)
[2020-10-19 07:15] LABS: ATYPICAL LYMPHS 2 % (0-0); OVALOCYTES FEW; PLATELET SUFFICIENCY LOW (NORMAL); SCHISTOCYTES FEW; TOTAL CELLS COUNTED 100 #CELLS; TOXIC GRANULATION SLIGHT
[2020-10-19 08:00] VITALS: BP 152/107
[2020-10-19 12:00] VITALS: BP 147/102
[2020-10-19 16:00] VITALS: BP 126/72
[2020-10-19 20:00] VITALS: BP 127/73
[2020-10-20] VITALS: BP 134/81
[2020-10-20 04:00] VITALS: BP 130/79
[2020-10-20 05:02] LABS: BUN 22 mg/dl (7-24); CHLORIDE 104 mmol/L (98-107); CREATININE 0.46 mg/dL (0.55-1.02); POTASSIUM 2.9 mmol/L (3.5-5.1); SODIUM 141 mmol/L (136-145)
[2020-10-20 08:00] VITALS: BP 139/80
[2020-10-20 12:00] VITALS: BP 125/90
[2020-10-20 16:00] VITALS: BP 123/79
[2020-10-20 20:00] VITALS: BP 150/91
[2020-10-21] VITALS: BP 137/81
[2020-10-21 06:36] LABS: BUN 17 mg/dl (7-24); CHLORIDE 107 mmol/L (98-107); CREATININE 0.24 mg/dL (0.55-1.02); POTASSIUM 3.5 mmol/L (3.5-5.1); SODIUM 139 mmol/L (136-145)
[2020-10-21 12:00] VITALS: BP 123/82
[2020-10-21 16:00] VITALS: BP 115/81
[2020-10-21 20:00] VITALS: BP 129/87
[2020-10-22] VITALS: BP 105/66
[2020-10-22 08:00] VITALS: BP 110/60
[2020-10-22 12:00] VITALS: BP 123/69
[2020-10-22] MEDS ORDERED: PANTOPRAZOLE SO20 MG PO (12:04)
[2020-10-22] MEDS ORDERED: Carafate1 GM PO (12:04)
[2020-10-22] MEDS ORDERED: LISINOPRIL2.5 MG PO (12:04)
[2020-10-22] MEDS ORDERED: HYDROCODONE-AC1 EAC1 PO (12:04)
[2020-10-22] MEDS ORDERED: MELATONIN1 MG PO (12:04)
== END 2020-10-22 15:48 | disposition home or self-care (01) | DRG 853 ==
LOC: ED 11:54 → ICCU 14:55 → EDHOLD 14:55 → ICCU 16:04 → 5E 10-20 14:53
PROVIDERS: Internal Medicine; Internal Medicine Critical Care Medicine; Physician Assistant; Social Worker Clinical; ADMIT Student in an Organized Health Care Education/Training Program; ATTEND Student in an Organized Health Care Education/Training Program
PROC: 0DU607Z Supplement Stomach with Autologous Tissue Substitute, Open Approach (ICD-10-PCS; principal; 2020-10-13)
PROC: 0DJ64ZZ Inspection of Stomach, Percutaneous Endoscopic Approach (ICD-10-PCS; 2020-10-13)
PROC: 02HV33Z Insertion of Infusion Device into Superior Vena Cava, Percutaneous Approach (ICD-10-PCS; 2020-10-13)
PROC: 5A0935A Assistance with Respiratory Ventilation, Less than 24 Consecutive Hours, High Flow/Velocity Cannula (ICD-10-PCS; 2020-10-15)
PROC: 5A09457 Assistance with Respiratory Ventilation, 24-96 Consecutive Hours, Continuous Positive Airway Pressure (ICD-10-PCS; 2020-10-16)
PROC: 5A0935A Assistance with Respiratory Ventilation, Less than 24 Consecutive Hours, High Flow/Velocity Cannula (ICD-10-PCS; 2020-10-16)
PROC: 3E0436Z Introduction of Nutritional Substance into Central Vein, Percutaneous Approach (ICD-10-PCS; 2020-10-17)
PROC: 5A0945A Assistance with Respiratory Ventilation, 24-96 Consecutive Hours, High Flow/Velocity Cannula (ICD-10-PCS; 2020-10-18)
PROC: 5A0935A Assistance with Respiratory Ventilation, Less than 24 Consecutive Hours, High Flow/Velocity Cannula (ICD-10-PCS; 2020-10-20)
PROC: 5A09357 Assistance with Respiratory Ventilation, Less than 24 Consecutive Hours, Continuous Positive Airway Pressure (ICD-10-PCS; 2020-10-20)
PROC: 5A0935A Assistance with Respiratory Ventilation, Less than 24 Consecutive Hours, High Flow/Velocity Cannula (ICD-10-PCS; 2020-10-21)
DX: A41.9 Sepsis, unspecified organism (principal); K65.9 Peritonitis, unspecified; J96.01 Acute respiratory failure with hypoxia; N17.0 Acute kidney failure with tubular necrosis; E43 Unspecified severe protein-calorie malnutrition; K25.6 Chronic or unspecified gastric ulcer with both hemorrhage and perforation; J44.1 Chronic obstructive pulmonary disease with (acute) exacerbation; E87.6 Hypokalemia; K52.9 Noninfective gastroenteritis and colitis, unspecified; R65.20 Severe sepsis without septic shock; D64.9 Anemia, unspecified; E87.8 Other disorders of electrolyte and fluid balance, not elsewhere classified; E86.9 Volume depletion, unspecified; D72.9 Disorder of white blood cells, unspecified; G62.9 Polyneuropathy, unspecified; I11.0 Hypertensive heart disease with heart failure; I50.9 Heart failure, unspecified; D72.810 Lymphocytopenia; F17.210 Nicotine dependence, cigarettes, uncomplicated; E83.39 Other disorders of phosphorus metabolism; T50.2X5A Adverse effect of carbonic-anhydrase inhibitors, benzothiadiazides and other diuretics, initial encounter; Y92.89 Other specified places as the place of occurrence of the external cause; Z90.49 Acquired absence of other specified parts of digestive tract; Z98.891 History of uterine scar from previous surgery; Z88.2 Allergy status to sulfonamides; Z83.3 Family history of diabetes mellitus; Z82.49 Family history of ischemic heart disease and other diseases of the circulatory system; Z82.3 Family history of stroke; Z86.010 Personal history of colon polyps; Z71.6 Tobacco abuse counseling; Z68.20 Body mass index [BMI] 20.0-20.9, adult

== ENCOUNTER 2020-10-30 10:34 | Inpatient (IN) | payer OTHER ==
[~2020-10-30] VITALS: Ht 165.1 cm; Wt 48.6 kg
[~2020-10-30 10:34] MED LIST changes: +HYDROCODONE-AC1 EAC1 PO; +LISINOPRIL2.5 MG PO; +MELATONIN1 MG PO; +PANTOPRAZOLE SO20 MG PO
[2020-10-30 10:39] VITALS: BP 124/86
[2020-10-30 11:04] LABS: BASO % 0.2 % (0.0-1.0); EOS % 0.3 % (1.0-4.0); HEMATOCRIT 34.7 % (37.0-47.0); LYMPH # 1.4 10*3/uL (1.3-4.4); MEAN CELL VOLUME 94.8 fl (81.0-99.0); MEAN CORPUSCULAR HGB 30.1 pg (27.0-31.0); MEAN CORPUSCULAR HGB CONC 31.7 g/dl (33.0-37.0); MEAN PLATELET VOLUME 9.8 fl (9.6-12.3); MONO # 0.6 10*3/uL (0.1-1.0); MONO % 4.6 % (3.0-9.0); NEUT # 10.4 10*3/uL (2.3-7.9); NEUT % 83.4 % (47.0-73.0); PLATELET COUNT AUTOMATED 506 10*3/uL (130-400); RED BLOOD COUNT 3.66 10*6/uL (4.10-5.10); RED CELL DISTRI WIDTH 15.5 % (0-14.5); WHITE BLOOD COUNT 12.5 10*3/uL (4.8-10.8)
[2020-10-30 11:13] VITALS: BP 125/79
[2020-10-30 11:15] LABS: ACT PARTIAL THROMBO TIME 36.4 SECONDS (20.0-32.1); INTERNATIONAL NORM RATIO 1.3 (2.0-3.5)
[2020-10-30 11:20] LABS: ALKALINE PHOSPHATASE 421 U/L (45-117); BUN 8 mg/dl (7-24); CHLORIDE 115 mmol/L (98-107); CREATININE 0.58 mg/dL (0.55-1.02); POTASSIUM 2.6 mmol/L (3.5-5.1); SGOT/AST 20 IU/L (3-35); SGPT/ALT 26 U/L (12-78); SODIUM 145 mmol/L (136-145); TOTAL PROTEIN 6.9 gm/dL (6.4-8.2)
[2020-10-30 12:35] VITALS: BP 116/64
[2020-10-30 13:20] VITALS: BP 115/76
[2020-10-30 16:00] VITALS: BP 132/78
[2020-10-30 20:00] VITALS: BP 112/75
[2020-10-31] VITALS: BP 110/73
[2020-10-31 06:28] LABS: BASO % 0.2 % (0.0-1.0); EOS # 0.1 10*3/uL (0.0-0.4); EOS % 0.9 % (1.0-4.0); LYMPH # 1.5 10*3/uL (1.3-4.4); LYMPH % 15.5 % (27.0-41.0); MEAN CELL VOLUME 94.6 fl (81.0-99.0); MEAN CORPUSCULAR HGB 30.1 pg (27.0-31.0); MEAN CORPUSCULAR HGB CONC 31.8 g/dl (33.0-37.0); MEAN PLATELET VOLUME 9.6 fl (9.6-12.3); MONO # 0.6 10*3/uL (0.1-1.0); NEUT # 7.2 10*3/uL (2.3-7.9); NEUT % 76.7 % (47.0-73.0); PLATELET COUNT AUTOMATED 413 10*3/uL (130-400); RED BLOOD COUNT 2.96 10*6/uL (4.10-5.10); RED CELL DISTRI WIDTH 15.8 % (0-14.5); WHITE BLOOD COUNT 9.3 10*3/uL (4.8-10.8)
[2020-10-31 06:45] LABS: ACT PARTIAL THROMBO TIME 42.2 SECONDS (20.0-32.1); INTERNATIONAL NORM RATIO 1.3 (2.0-3.5)
[2020-10-31 06:46] LABS: ALBUMIN 1.7 gm/dl (3.1-4.5); BUN 4 mg/dl (7-24); CHLORIDE 117 mmol/L (98-107); CREATININE 0.35 mg/dL (0.55-1.02); SGOT/AST 11 IU/L (3-35); SGPT/ALT 19 U/L (12-78); SODIUM 142 mmol/L (136-145); TOTAL PROTEIN 5.3 gm/dL (6.4-8.2)
[2020-10-31 06:55] LABS: ALKALINE PHOSPHATASE 310 U/L (45-117); THYROID STIM HORMONE (HS) 0.047 uIU/ml (0.358-4.75)
[2020-10-31 08:00] VITALS: BP 124/68
[2020-10-31 12:00] VITALS: BP 131/83
[2020-10-31 16:00] VITALS: BP 114/70
[2020-10-31 20:00] VITALS: BP 122/76
[2020-11-01] VITALS: BP 117/79
[2020-11-01 06:47] LABS: BASO % 0.1 % (0.0-1.0); EOS # 0.1 10*3/uL (0.0-0.4); EOS % 0.5 % (1.0-4.0); LYMPH # 1.7 10*3/uL (1.3-4.4); LYMPH % 15.5 % (27.0-41.0); MEAN CORPUSCULAR HGB 30.2 pg (27.0-31.0); MEAN CORPUSCULAR HGB CONC 32.5 g/dl (33.0-37.0); MEAN PLATELET VOLUME 9.7 fl (9.6-12.3); MONO # 0.8 10*3/uL (0.1-1.0); MONO % 6.9 % (3.0-9.0); NEUT # 8.4 10*3/uL (2.3-7.9); NEUT % 76.5 % (47.0-73.0); PLATELET COUNT AUTOMATED 405 10*3/uL (130-400); RED BLOOD COUNT 3.01 10*6/uL (4.10-5.10); RED CELL DISTRI WIDTH 15.6 % (0-14.5)
[2020-11-01 07:20] LABS: BUN 3 mg/dl (7-24); CHLORIDE 110 mmol/L (98-107); CREATININE 0.43 mg/dL (0.55-1.02); POTASSIUM 2.7 mmol/L (3.5-5.1); SODIUM 139 mmol/L (136-145)
[2020-11-01 08:00] VITALS: BP 120/80
[2020-11-01 12:00] VITALS: BP 139/88
[2020-11-01 15:53] LABS: BUN 4 mg/dl (7-24); CHLORIDE 109 mmol/L (98-107); POTASSIUM 2.9 mmol/L (3.5-5.1); SODIUM 139 mmol/L (136-145)
[2020-11-01 15:54] LABS: CREATININE 0.46 mg/dL (0.55-1.02)
[2020-11-01 16:00] VITALS: BP 136/81
[2020-11-01 20:00] VITALS: BP 124/81
[2020-11-02] VITALS: BP 118/80
[2020-11-02 06:38] LABS: BASO % 0.2 % (0.0-1.0); EOS # 0.1 10*3/uL (0.0-0.4); EOS % 0.6 % (1.0-4.0); LYMPH # 1.5 10*3/uL (1.3-4.4); LYMPH % 14.8 % (27.0-41.0); MEAN CELL VOLUME 94.9 fl (81.0-99.0); MEAN CORPUSCULAR HGB 30.1 pg (27.0-31.0); MEAN CORPUSCULAR HGB CONC 31.7 g/dl (33.0-37.0); MEAN PLATELET VOLUME 9.7 fl (9.6-12.3); MONO # 0.6 10*3/uL (0.1-1.0); MONO % 5.9 % (3.0-9.0); NEUT % 77.9 % (47.0-73.0); PLATELET COUNT AUTOMATED 384 10*3/uL (130-400); RED BLOOD COUNT 3.16 10*6/uL (4.10-5.10); RED CELL DISTRI WIDTH 15.4 % (0-14.5); WHITE BLOOD COUNT 10.3 10*3/uL (4.8-10.8)
[2020-11-02 06:47] LABS: BUN 5 mg/dl (7-24); CHLORIDE 109 mmol/L (98-107); CREATININE 0.33 mg/dL (0.55-1.02); POTASSIUM 3.8 mmol/L (3.5-5.1); SODIUM 139 mmol/L (136-145)
[2020-11-02 08:00] VITALS: BP 138/92
[2020-11-02 12:00] VITALS: BP 118/74
[2020-11-02 16:16] VITALS: BP 131/78
[2020-11-02 20:00] VITALS: BP 130/79
[2020-11-03] VITALS: BP 113/71
[2020-11-03 08:00] VITALS: BP 102/70
[2020-11-03 12:00] VITALS: BP 103/78
[2020-11-03 16:00] VITALS: BP 117/76
[2020-11-03 20:00] VITALS: BP 118/71
[2020-11-04] VITALS: BP 120/80
[2020-11-04 06:35] LABS: BASO % 0.2 % (0.0-1.0); EOS # 0.1 10*3/uL (0.0-0.4); EOS % 0.7 % (1.0-4.0); HEMATOCRIT 29.1 % (37.0-47.0); LYMPH # 1.3 10*3/uL (1.3-4.4); LYMPH % 10.4 % (27.0-41.0); MEAN CELL VOLUME 92.7 fl (81.0-99.0); MEAN CORPUSCULAR HGB 30.6 pg (27.0-31.0); MONO # 0.7 10*3/uL (0.1-1.0); MONO % 5.6 % (3.0-9.0); NEUT # 10.1 10*3/uL (2.3-7.9); NEUT % 82.4 % (47.0-73.0); PLATELET COUNT AUTOMATED 403 10*3/uL (130-400); RED BLOOD COUNT 3.14 10*6/uL (4.10-5.10); RED CELL DISTRI WIDTH 14.7 % (0-14.5); WHITE BLOOD COUNT 12.2 10*3/uL (4.8-10.8)
[2020-11-04 06:55] LABS: BUN 6 mg/dl (7-24); CHLORIDE 102 mmol/L (98-107); CREATININE 0.31 mg/dL (0.55-1.02); POTASSIUM 3.5 mmol/L (3.5-5.1); SODIUM 136 mmol/L (136-145); URIC ACID 0.8 mg/dL (2.6-6.0)
[2020-11-04 08:10] VITALS: BP 110/71
[2020-11-04] MEDS ORDERED: DOXYCYCLINE100 M3 PO (11:36)
[2020-11-04 12:17] VITALS: BP 119/68
[2020-11-04] MEDS ORDERED: HYDROCODONE-AC1 EAC1 PO (19:04)
[2020-11-04] MEDS ORDERED: ZOFRAN4 MG PO (19:04)
[2020-11-05] MEDS ORDERED: HYDROCODONE-AC1 EAC1 PO (10:16)
== END 2020-11-04 14:20 | disposition home or self-care (01) | DRG 862 ==
LOC: ED 10:34 → 5E 11:12 → EDHOLD 11:12 → 5E 12:34
PROVIDERS: Emergency Medicine; Family Medicine; Internal Medicine; Student in an Organized Health Care Education/Training Program; ADMIT Emergency Medicine; ATTEND Emergency Medicine
DX: T81.43XA Infection following a procedure, organ and space surgical site, initial encounter (principal); E43 Unspecified severe protein-calorie malnutrition; T81.31XA Disruption of external operation (surgical) wound, not elsewhere classified, initial encounter; Z68.1 Body mass index [BMI] 19.9 or less, adult; T81.44XA Sepsis following a procedure, initial encounter; S31.109A Unspecified open wound of abdominal wall, unspecified quadrant without penetration into peritoneal cavity, initial encounter; J44.9 Chronic obstructive pulmonary disease, unspecified; G62.9 Polyneuropathy, unspecified; F17.210 Nicotine dependence, cigarettes, uncomplicated; I10 Essential (primary) hypertension; Y83.8 Other surgical procedures as the cause of abnormal reaction of the patient, or of later complication, without mention of misadventure at the time of the procedure; E87.6 Hypokalemia; D64.9 Anemia, unspecified; D47.3 Essential (hemorrhagic) thrombocythemia; L40.9 Psoriasis, unspecified; Z20.822 Contact with and (suspected) exposure to COVID-19; K27.9 Peptic ulcer, site unspecified, unspecified as acute or chronic, without hemorrhage or perforation; E55.9 Vitamin D deficiency, unspecified; Z88.2 Allergy status to sulfonamides; Z98.891 History of uterine scar from previous surgery; Z87.11 Personal history of peptic ulcer disease; Z90.49 Acquired absence of other specified parts of digestive tract; Z83.3 Family history of diabetes mellitus; Z82.49 Family history of ischemic heart disease and other diseases of the circulatory system; Z82.3 Family history of stroke; Y92.89 Other specified places as the place of occurrence of the external cause